=== PATIENT | female | born 1970 | race Caucasian/White ===

== ENCOUNTER → 2019-02-16 16:41 | Outpatient (CLI) | payer OTHER, SELFPAY ==
--- NOTE | 2019-02-16 16:46 | CT_ITS ---
STUDY: CT MAXILLOFACIAL SINUSES REASON FOR EXAM: Female, 49 years old. NASAL POLYP NASAL POLYP REMOVED X5 YRS AGO RADIATION DOSAGE (If Supplied By Facility): CTDIvol = ( 33.06 ) mGy, DLP = ( 776.00 ) mGycm TECHNIQUE: The patient was scanned in a multi detector CT scanner. High resolution axial imaging was performed without the administration of intravenous contrast material. Sagittal and coronal images were reconstructed. Individualized dose optimization techniques were used for this CT. COMPARISON: None. FINDINGS: FRONTAL SINUSES: Normal aeration, without mucosal inflammatory disease. ETHMOIDAL SINUSES: Normal aeration, without mucosal inflammatory disease. MAXILLARY SINUSES: The left maxillary sinus is 80-90% filled with mucus material. An antrectomy deformity is present. The right maxillary sinus is clear. SPHENOIDAL SINUSES: Normal aeration, without mucosal inflammatory disease. There is patency of the bilateral maxillary infundibuli with normal uncinate processes, ethmoid bullae, and hiatus semilunaris. Normal bilateral middle turbinates. Normal bilateral inferior turbinates. Normal midline nasal septum. There is patency of the bilateral nasal airways. The visualized osseous structures are normal. The visualized bilateral orbital contents are normal. CT/Sinus/Facial Bone IMPRESSION: 1. The left maxillary sinus is 80-90% filled with mucus material. An antrectomy deformity is present. Electronically Signed: Pool Hauser MD at 17:10 EST , Service support ,
== END ==
PROVIDERS: Referring Provider Otolaryngology; Visit Provider Otolaryngology
DX: J33.9 Nasal polyp, unspecified (principal); J32.8 Other chronic sinusitis
CPT/HCPCS: 70486

== ENCOUNTER → 2019-08-23 14:00 | Outpatient (CLI) | payer OTHER, SELFPAY ==
--- NOTE | 2019-08-26 12:06 | EKG12_ITS ---
Test Reason : PRE-OP Blood Pressure : / mmHG Vent. Rate : 061 BPM Atrial Rate : 061 BPM P-R Int : 174 ms QRS Dur : 146 ms QT Int : 462 ms P-R-T Axes : 051 012 058 degrees QTc Int : 465 ms Normal sinus rhythm Left bundle branch block Abnormal ECG Confirmed by HERMINIO CONDON, VINCENT ([id number]), editorial clerk TIKA DAN ([id number]) on 08/30/2019 1:48:42 PM Referred By: Mati Fernandez Confirmed By:GEO DURHAM MD
[2019-08-26 12:19] LABS: Hematocrit 41.9 % (37-47); Hemoglobin 13.8 g/dL (12.0-15.0); Mean Corp Hgb Conc 32.9 g/dL (32-36); Mean Corpuscular Hgb 29.2 pg (27.0-32.0); Mean Corpuscular Volume 88.8 fL (81-99); Mean Platelet Vol. 9.3 fl (6.2-12.0); Platelet Count 271 K/mm3 (150-450); RBC Distribution Width SD 42.4 fl (35.1-43.9); Red Blood Count 4.72 M/mm3 (4.2-5.4); White Blood Count 7.1 K/mm3 (4.4-11.0)
[2019-08-26 12:51] LABS: Anion Gap 7 (5-15); BUN 14 mg/dL (7-18); BUN/Creat Ratio 16.5 RATIO (10-20); Calcium,Total 8.7 mg/dL (8.5-10.1); Chloride 102 mmol/L (98-107); Creatinine, Serum 0.85 mg/dL (0.55-1.02); EST Glomerular Filtration Rate 76 mL/min (>60); Est Glom Filt Rate - Afr Amer 92 mL/min (>60); Glucose 92 mg/dL (74-106); Sodium Level 139 mmol/L (136-145)
== END ==
PROVIDERS: Anesthesiology; Referring Provider Otolaryngology; Visit Provider Otolaryngology
DX: Z01.810 Encounter for preprocedural cardiovascular examination (principal); I44.7 Left bundle-branch block, unspecified; Z01.812 Encounter for preprocedural laboratory examination
CPT/HCPCS: 36415; 80048; 85027; 93005

== ENCOUNTER 2019-12-06 06:07 | Day surgery (SDC) | payer OTHER, SELFPAY ==
[2019-11-30 15:51] LABS: Absolute Lymphocyte Count 3.37 X10^3/uL (0.83-4.51); Absolute Neutrophil Count 4.3 X10^3/uL (2.0-7.7); Basophil# 0.04 X10^3/uL; Basophil% 0.5 % (0-1); Eosinophil# 0.27 X10^3/uL; Eosinophils% 3.1 % (0-5); Hematocrit 40.5 % (37-47); Hemoglobin 13.1 g/dL (12.0-15.0); Lymphocyte # 3.37 X10^3/ul (4.0); Lymphocyte % 38.7 % (19-41); Mean Corp Hgb Conc 32.3 g/dL (32-36); Mean Corpuscular Hgb 28.5 pg (27.0-32.0); Mean Corpuscular Volume 88.2 fL (81-99); Mean Platelet Vol. 9.6 fl (6.2-12.0); Monocyte# 0.68 X10^3/uL; Monocyte% 7.8 % (0-10); NRBC Flagged by Analyzer 0 % (0-5); Neutrophil # 4.31 X10^3/uL (2.7-7.7); Neutrophil % 49.4 % (47-70); Platelet Count 277 K/mm3 (150-450); RBC Distribution Width SD 42.1 fl (35.1-43.9); Red Blood Count 4.59 M/mm3 (4.2-5.4); White Blood Count 8.7 K/mm3 (4.4-11.0)
[2019-11-30 16:53] LABS: Anion Gap 7 (5-15); BUN 10 mg/dL (7-18); BUN/Creat Ratio 11.9 RATIO (10-20); Calcium,Total 8.7 mg/dL (8.5-10.1); Chloride 101 mmol/L (98-107); Creatinine, Serum 0.84 mg/dL (0.55-1.02); EST Glomerular Filtration Rate 77 mL/min (>60); Est Glom Filt Rate - Afr Amer 93 mL/min (>60); Glucose 82 mg/dL (74-106); Potassium 3.6 mmol/L (3.5-5.1); Sodium Level 138 mmol/L (136-145)
[2019-12-06] VITALS (8 sets, daily range): BP systolic 127–158; BP diastolic 75–90; PULSE 53–88; RESP 16–18; TEMP 36.3–37.1; O2SAT 97–100; BMI 30.7
--- NOTE | 2019-12-06 | ETH_PTH ---
PATIENT: NATE MEYERS LOC: [facility] [place] U#:[id number] AGE/SX: 49/F ROOM: RE12/06/[address]: Dr. Mati Fernandez MD : 1970 BED: DIS: 12/06/2019 SPEC #: [id number] RECD: 12/06/19 09:58 STATUS: DULCE SHAWJerrica #: [id number] CHRIS: 12/06/19 00:[address]: Mati Fernandez DEPT: SURGICAL PATHOLOGY RECD BY: Oswaldo Quintanilla ENTERED: 12/06/19 10:32 SP TYPE: ETH TISS OTHR DR: Dr. Parviz Johns MD Tissues: Ethmoid sinus, NOS Procedures: Surgery Specimen Level IV HEADER OPERATION: Maxillary antrostomy with tissue removal PRE-OP DIAGNOSIS: Polyp of nasal cavity, chronic sinusitis TISSUE SUBMITTED: Contents of left maxillary sinus MICROSCOPIC DIAGNOSIS Left maxillary sinus contents: Fragments of respiratory mucosa with chronic inflammation. See comment. SJ:sofia 12/07/19 COMMENT A few of the fragments have polypoid appearance and may represent fragment of benign mucosal polyp. MICROSCOPIC DESCRIPTION Slides are reviewed. GROSS DESCRIPTION Received in fixative is one container labeled with the patient's name and designated contents of left maxillary sinus. The specimen consists of multiple irregular fragments of stafford-pink to hemorrhagic soft tissue that in aggregate measure 2.5 x 2 x 0.2 cm. The entire specimen is submitted in one cassette. / RUTHANN:sofia 12/06/19 TC:3 CPT: 16023
[2019-12-06 06:46] LABS: Internal QC Validated? YES +Cl - CLEAR BKGD; Pregnancy, Urine Negative Negative
[2019-12-06] MEDS: Lactated Ringers 1,000 ML 100 ML IV ×2 (06:58→08:16)
[2019-12-06] MEDS: Oxymetazoline 0.05% 1 SPRAY SPRAY.BTL 3 SPRAY NASAL (07:05)
--- NOTE | 2019-12-06 07:34 | DCINST_ITS ---
You will use the following diet at home:: Regular Discharge Activity: Return to Normal Activity Additional Activity Instructions:: no noseblowing. Start irrigation 4x/day on 12/07/19 Allergies/Adverse Reactions: Allergies amoxicillin [From Augmentin] Allergy (Verified 12/06/19 06:51) Anaphylaxis clavulanic acid [From Augmentin] Allergy (Verified 12/06/19 06:51) Anaphylaxis latex Allergy (Verified 12/06/19 06:34) Swelling Sulfa (Sulfonamide Antibiotics) Allergy (Verified 12/06/19 06:34) Shortness of breath codeine Adverse Reaction (Verified 12/06/19 06:34) PT UNSURE OF REACTION heart races Medications to take at Discharge Ascorbic Acid [Vitamin C] 500 mg PO QODAY 08/23/19 DiphenhydrAMINE [Benadryl] 25 mg PO PRN PRN 08/23/19 Gabapentin 300 - 900 mg PO QHS 08/23/19 Acetaminophen [Tylenol Extra Strength] 500 - 1,000 mg PO Q6H PRN PRN 11/25/19 Primary Care Physician: Parviz Johns MD [Primary Care Provider] - Test Results: Test results from this visit will be discussed in further detail at your follow- up appointment, if applicable.
[2019-12-06] MEDS: Oxymetazoline 0.05% 1 SPRAY SPRAY.BTL 15 SPRAY (08:00)
--- NOTE | 2019-12-06 08:48 | OP.PCM_ITS ---
Report of Operation Date of Procedure: 12/06/19 Pre-Operative Diagnosis: left maxillary sinus polyp Post-Operative Diagnosis: same Surgery/Procedure Performed:: Left maxillary antrostomy with polyp removal Description of Surgical Findings:: large polyp Type of Anesthesia:: Epidural/Supplement, General Anesthesiologist: Arvind Hanks Specimen's removed: left maxillary sinus contents Estimated Blood Loss (mL): minimal Description of Procedure: The patient was taken to the operating room on 12/06/19. The patient was placed in the supine position on the operating table. The patient was given sufficient general endotracheal anesthesia. The head of bed was elevated 30 degrees. The navigation system was placed and verified per protocol and found to be accurate. 30 and 70 degrees rigid nasal endoscopes were used throughout the entire case. The left middle turbinate uncinate process and polyps were injected with 1% lidocaine with epinephrine. The middle turbinate was medialized with a [place] elevator. The remanant uncinate process was taken down using a microdebrider. Tissue was removed from the maxillary sinus using a microdebrider with a 70 degree rigid nasal endoscope for visualization. I then used a 90 degree giraffe forceps to remove the mucosa where the polyp was adhered inferior and laterally. There was an obvious tooth at the inferior most portion of the sinus. Hemostasis was then achieved using Afrin pledgets. The pledgets were then removed and Blanca powder was applied for absolute hemostasis. The procedure was then terminated. The patient was then awoken and brought to the recovery room in stable condition blood loss less than 30 cc replacement none. Sponge, needle, instrument count were correct at the end of the procedure.
[2019-12-06] MEDS: Acetaminophen 325 MG Tablet 650 MG PO (10:20)
--- NOTE | 2019-12-06 12:45 | SUR.PHASEII ---
pt's nose has begun bleeding. rn called back to [facility] and updated dr. polanco. he is aware but states pt. may be discharged home at this time. pt. agreeable to this.
== END 2019-12-06 13:01 | disposition home or self-care (01) ==
LOC: SDC 06:09 → AC 06:10
PROVIDERS: Anesthesiology; Referring Provider Otolaryngology; Visit Provider Otolaryngology
PROC: (CPT 31267; principal; 2019-12-06 07:00)
DX: J33.0 Polyp of nasal cavity (principal); Z11.59 Encounter for screening for other viral diseases; Z87.891 Personal history of nicotine dependence; J32.8 Other chronic sinusitis
CPT/HCPCS: 00160; 31267; 61782; 36415; 80048; 81025; 85025; 87635; 88305; C9803; J7120; C1769; J2405; U0003